=== PATIENT | male | born 1985 | race African-American/Black ===

== ENCOUNTER 2024-08-18 17:35 | Emergency (ER) | payer SELFPAY ==
[~2024-08-18] VITALS: Ht 175.3 cm; Wt 73.6 kg
[2024-08-18] MEDS ORDERED: IBUPROFEN600 MG PO (18:08)
[2024-08-18] MEDS ORDERED: TYLENOL325 MG PO (18:08)
[2024-08-18] MEDS: IBUPROFEN 600 MG TAB PO ONE (18:51)
[2024-08-18] MEDS: ACETAMINOPHEN 325 MG TAB PO ONE (18:52)
[2024-08-18 19:01] VITALS: PULSE 92; RESP 18; TEMP 98.7
[2024-08-18 19:05] VITALS: BP 159/99; PULSE 92; RESP 18; TEMP 98.7; O2SAT 97
== END 2024-08-18 19:20 | disposition home or self-care (01) ==
LOC: FSED 17:43
DX: M25.512 Pain in left shoulder (principal); M75.02 Adhesive capsulitis of left shoulder
CPT/HCPCS: 99284